=== PATIENT | male | born 1995 | race Caucasian/White ===

== ENCOUNTER 2018-11-29 08:05 | Emergency (ER) | payer OTHER ==
[~2018-11-29] VITALS: Ht 180.3 cm; Wt 74.8 kg
[2018-11-29 09:28] LABS: Urine Bacteria FEW /hpf (None Seen); Urine Blood Negative /uL (Negative); Urine Specific Gravity 1.018 (1.001-1.035); Urine WBC 4 /hpf (0 - 3)
[2018-11-29 10:13] VITALS: BP 114/73
[2018-11-29] MEDS ORDERED: KETOROLAC TROMETH 30 MG/ML 1ML VIAL IV ONE (10:15)
== END 2018-11-29 12:09 | disposition home or self-care (01) ==
LOC: ER 08:05
DX: N20.0 Calculus of kidney (principal); E86.0 Dehydration; F17.210 Nicotine dependence, cigarettes, uncomplicated; F12.10 Cannabis abuse, uncomplicated
CPT/HCPCS: 74176; 81001; 96374; 99284; J1885

== ENCOUNTER 2022-07-18 10:14 | Emergency (ER) | payer OTHER ==
[~2022-07-18] VITALS: Ht 182.9 cm; Wt 71.7 kg
[2022-07-18 11:37] VITALS: BP 107/61
[2022-07-18] MEDS ORDERED: CYCL-839 PO (12:32)
[2022-07-18] MEDS ORDERED: IBUP600T28 PO (12:32)
[2022-07-18] MEDS ORDERED: LIDO5PAD8 EX (12:32)
== END 2022-07-18 12:48 | disposition home or self-care (01) ==
LOC: ER 10:14
DX: S39.012A Strain of muscle, fascia and tendon of lower back, initial encounter (principal); F17.210 Nicotine dependence, cigarettes, uncomplicated; F12.90 Cannabis use, unspecified, uncomplicated; X50.0XXA Overexertion from strenuous movement or load, initial encounter; Y93.89 Activity, other specified; Y92.89 Other specified places as the place of occurrence of the external cause; Y99.8 Other external cause status; Z79.899 Other long term (current) drug therapy
CPT/HCPCS: 72100